=== PATIENT | female | born 1995 | race Caucasian/White ===

== ENCOUNTER → 2024-05-12 08:51 | Outpatient (CLI) | payer OTHER, SELFPAY ==
[2024-05-12 14:35] LABS: Urine Chlamydia NOT DETECTED; Urine N gonorrhoeae NOT DETECTED
== END ==
PROVIDERS: Visit Provider Obstetrics & Gynecology
DX: Z34.01 Encounter for supervision of normal first pregnancy, first trimester (principal); Z3A.12 12 weeks gestation of pregnancy
CPT/HCPCS: 87491; 87591

== ENCOUNTER → 2024-05-12 09:04 | Outpatient (CLI) | payer OTHER, SELFPAY ==
[2024-05-12 09:33] LABS: Add Manual Diff / Slide Review NO; Basophils Absolute Auto 100 /uL (0-100); Basophils Percent Auto 0.5 % (0-2); Eosinophils Absolute Auto 200 /uL (0-450); Eosinophils Percent Auto 1.8 % (2-4); Hematocrit 39.4 % (36-46); Hemoglobin 13.3 g/dL (12.0-16.0); Lymphocytes Absolute Auto 2000 /uL (1100-4500); Lymphocytes Percent Auto 15.7 % (25-40); Mean Corpuscular HGB Conc 33.7 % (30-36); Mean Corpuscular Hemoglobin 29.9 PG (26-34); Mean Corpuscular Volume 88.8 fL (80-100); Monocytes Absolute Auto 700 /uL (0-900); Monocytes Percent Auto 5.5 % (3-14); Neutrophils Absolute Auto 9600 /uL (1500-7000); Neutrophils Percent Auto 76.5 % (50-75); Platelet Count 315 X10^3/uL (150-400); Red Blood Cell Count 4.43 X10^6/uL (4.0-5.2); White Blood Cell Count 12.5 X10^3/uL (4.5-11.0)
[2024-05-12 10:16] LABS: Hepatitis B Surface Antigen NEGATIVE s/c (NEGATIVE); Rubella Antibody IgG 4.5 IU/mL (>15)
[2024-05-12 10:32] LABS: HIV 1 & 2 Ab/Ag 4th Gen Combo NEGATIVE (NEGATIVE); Hep C Virus Ab w/Reflex Quant NEGATIVE s/c (NEGATIVE)
[2024-05-12 12:12] LABS: Hemoglobin A1C% w Est Avg Glu 5.1 % (4.0-6.0)
[2024-05-13 06:14] LABS: RPR Screen Non Reactive (Non Reactive)
[2024-05-13 08:11] LABS: Varicella IgG Antibody Reactive (Non Reactive)
== END ==
PROVIDERS: Referring Provider Obstetrics & Gynecology; Visit Provider Obstetrics & Gynecology
DX: O99.210 Obesity complicating pregnancy, unspecified trimester (principal)
CPT/HCPCS: 36415; 80055; 83036; 86787; 86803; 86850; 86900; 86901; 87389; 87491; 87591

== ENCOUNTER → 2024-05-18 13:27 | Outpatient (CLI) | payer OTHER, SELFPAY ==
--- NOTE | 2024-05-18 13:36 | EKG_ITS ---
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
== END ==
PROVIDERS: Referring Provider Obstetrics & Gynecology; Visit Provider Obstetrics & Gynecology
DX: O16.1 Unspecified maternal hypertension, first trimester (principal)
CPT/HCPCS: 93005

== ENCOUNTER → 2024-05-25 08:43 | Outpatient (CLI) | payer OTHER, SELFPAY ==
[2024-05-25 10:46] LABS: Collection Time Urine 24 Hours; Protein (Total) Urine Random 15 mg/dL (0-12); Total Protein 24 Hour Urine 443 mg/day (42-225); Total Volume Urine 2950 mL
== END ==
PROVIDERS: Referring Provider Obstetrics & Gynecology; Visit Provider Obstetrics & Gynecology
DX: O16.1 Unspecified maternal hypertension, first trimester (principal)
CPT/HCPCS: 84156

== ENCOUNTER → 2024-06-09 10:23 | Outpatient (CLI) | payer OTHER, SELFPAY | PROVIDERS: Visit Provider Student in an Organized Health Care Education/Training Program | DX: Z34.02 Encounter for supervision of normal first pregnancy, second trimester (principal); Z3A.16 16 weeks gestation of pregnancy | CPT/HCPCS: 87086 ==

== ENCOUNTER → 2024-07-13 12:32 | Outpatient (CLI) | payer OTHER, SELFPAY ==
--- NOTE | 2024-07-13 12:34 | DI.US.S_ITS ---
PROCEDURE: US OB >= 14 WEEKS FETUS INDICATIONS: 20 week anatomy OUTSIDE/PRIOR DATING DATA: Last menstrual period (LMP): 02/18/2024. LMP-based estimated date of delivery (MAHSA): 11/24/2024. Working MAHSA First dating scan (date and location): 05/12/2024. Estimated date of delivery (MAHSA) from first dating scan: 11/22/2024. TECHNIQUE: Real-time scanning was performed of the fetus, with image documentation and biometric measurements. COMPARISON: Not available for review FINDINGS: General: A single living intrauterine gestation is present. Presentation: Variable. Placenta: Placental position is posterior , without previa. Amniotic fluid index 14.1 cm, normal range is 5-24 cm. Single deepest vertical pocket is 4 cm heart rate: 155 beats per minute. Maternal cervical canal: 4.7 cm long. biometrics: Biparietal diameter: 4.8 cm, 20 weeks and 4 days Head circumference: 17.6 cm, 20 weeks and 1 day Abdominal circumference: 16.3 cm, 21 weeks and 2 days Femur length: 3.3 cm, 20 weeks and 1 day Clinically estimated gestational age: 20 weeks and 6 days Composite gestational age from present scan: 20 weeks and 4 days Estimated weight and percentile: 373 g, 38% Anatomic survey: Neuro: Ventricles are non-dilated at less than 10 mm. Cisterna magna is normal at 3-11 mm. Cerebellum is normal in size and morphology. Nuchal skin fold: Normal at less than 6 mm between 14-21 weeks gestational age. Face: Nose and lips, facial profile are normal. Spine: No evidence for spina bifida. Heart: 4-chambered heart is present, with normal ventricular outflow tracts. Diaphragm: Diaphragm is intact. Stomach: Left-sided stomach is present. Kidneys: No hydronephrosis. Normal is less than 5 mm in 2nd trimester, less than 7 mm in 3rd trimester. Cord: 3-vessel cord has orthotopic insertion. Bladder: Normal in size. Extremities: All 4 extremities identified. IMPRESSION: Living intrauterine gestation at 20 weeks and 6 days. EFW at the 38th percentile, within normal limits. Normal STEPHANIE. No significant abnormalities on routine anatomic survey. Dictated by: Aramis Morris M.D. on 07/14/2024 at 14:09 Approved by: Aramis Morris M.D. on 07/14/2024 at 14:32
== END ==
LOC: US 12:33
PROVIDERS: Referring Provider Obstetrics & Gynecology; Visit Provider Obstetrics & Gynecology
DX: Z34.02 Encounter for supervision of normal first pregnancy, second trimester (principal); Z3A.20 20 weeks gestation of pregnancy
CPT/HCPCS: 76811

== ENCOUNTER 2024-08-07 14:41 | Observation (INO) | payer OTHER, SELFPAY ==
[2024-08-07 15:35] LABS: Add Manual Diff / Slide Review NO; Basophils Absolute Auto 100 /uL (0-100); Basophils Percent Auto 0.4 % (0-2); Eosinophils Absolute Auto 200 /uL (0-450); Eosinophils Percent Auto 1.6 % (2-4); Hematocrit 37.1 % (36-46); Hemoglobin 12.5 g/dL (12.0-16.0); Lymphocytes Absolute Auto 2300 /uL (1100-4500); Lymphocytes Percent Auto 16.4 % (25-40); Mean Corpuscular HGB Conc 33.7 % (30-36); Mean Corpuscular Hemoglobin 29.4 PG (26-34); Mean Corpuscular Volume 87.3 fL (80-100); Monocytes Absolute Auto 1100 /uL (0-900); Monocytes Percent Auto 7.7 % (3-14); Neutrophils Absolute Auto 10400 /uL (1500-7000); Neutrophils Percent Auto 73.9 % (50-75); Platelet Count 296 X10^3/uL (150-400); Red Blood Cell Count 4.25 X10^6/uL (4.0-5.2); Red Cell Distribution Width 13.2 % (11.6-14.8)
[2024-08-07 15:47] LABS: Uric Acid 3.5 mg/dL (2.5-6.2)
[2024-08-07 15:48] LABS: Alanine Aminotransferase 22 IU/L (<35); Albumin 3.7 g/dL (3.5-5.0); Albumin Globulin Ratio 1.4 (1.0-2.8); Alkaline Phosphatase 61 U/L (38-126); Aspartate Aminotransferase 25 IU/L (14-36); BUN Creatinine Ratio 11.4 (6-22); Bilirubin Total 0.2 mg/dL (0.2-1.3); Blood Urea Nitrogen 5 mg/dL (7-17); Calcium 8.9 mg/dL (8.4-10.2); Carbon Dioxide 22 mmol/L (22-32); Chloride 108 mmol/L (98-107); Estimated Glomerular Filt Rate > 60 mL/min (>60); Globulin 2.7 g/dL (1.7-4.1); Glucose 85 mg/dL (70-100); HEMOLYSIS < 15 (0-50); Potassium 3.4 mmol/L (3.4-5.1); Sodium 137 mmol/L (137-145); Total Protein 6.4 g/dL (6.3-8.2)
[2024-08-07 15:58] LABS: Creatinine Urine Random 111.64 mg/dL; Protein (Total) Urine Random 10 mg/dL (0-12); Protein Creatinine Ratio Urine 0.08 GRAM/24H
== END 2024-08-07 16:45 | disposition home or self-care (01) ==
LOC: LABOR 14:42
PROVIDERS: Admitting Provider Obstetrics & Gynecology; Referring Provider Obstetrics & Gynecology; Visit Provider Obstetrics & Gynecology
DX: O10.912 Unspecified pre-existing hypertension complicating pregnancy, second trimester (principal); Z3A.24 24 weeks gestation of pregnancy
CPT/HCPCS: 59025; 80053; 82570; 84156; 84550; 85025; G0378; G0379

== ENCOUNTER 2024-08-11 11:06 | Outpatient (CLI) | payer OTHER, SELFPAY ==
[2024-08-11 11:26] LABS: Add Manual Diff / Slide Review NO; Basophils Absolute Auto 100 /uL (0-100); Basophils Percent Auto 0.8 % (0-2); Eosinophils Absolute Auto 200 /uL (0-450); Eosinophils Percent Auto 1.5 % (2-4); Hematocrit 42.7 % (36-46); Hemoglobin 14.5 g/dL (12.0-16.0); Lymphocytes Absolute Auto 2300 /uL (1100-4500); Lymphocytes Percent Auto 14.7 % (25-40); Mean Corpuscular HGB Conc 34.1 % (30-36); Mean Corpuscular Hemoglobin 29.9 PG (26-34); Mean Corpuscular Volume 87.8 fL (80-100); Monocytes Absolute Auto 1100 /uL (0-900); Monocytes Percent Auto 6.8 % (3-14); Neutrophils Absolute Auto 11800 /uL (1500-7000); Neutrophils Percent Auto 76.2 % (50-75); Platelet Count 357 X10^3/uL (150-400); Red Blood Cell Count 4.87 X10^6/uL (4.0-5.2); Red Cell Distribution Width 13.1 % (11.6-14.8); White Blood Cell Count 15.5 X10^3/uL (4.5-11.0)
[2024-08-11 11:39] LABS: Alanine Aminotransferase 25 IU/L (<35); Albumin 4.2 g/dL (3.5-5.0); Albumin Globulin Ratio 1.3 (1.0-2.8); Alkaline Phosphatase 75 U/L (38-126); Aspartate Aminotransferase 26 IU/L (14-36); Bilirubin Total 0.3 mg/dL (0.2-1.3); Blood Urea Nitrogen 6 mg/dL (7-17); Calcium 9.2 mg/dL (8.4-10.2); Carbon Dioxide 18 mmol/L (22-32); Chloride 107 mmol/L (98-107); Estimated Glomerular Filt Rate > 60 mL/min (>60); Globulin 3.3 g/dL (1.7-4.1); Glucose 112 mg/dL (70-100); HEMOLYSIS < 15 (0-50); Potassium 3.6 mmol/L (3.4-5.1); Sodium 135 mmol/L (137-145); Total Protein 7.5 g/dL (6.3-8.2); Uric Acid 4.4 mg/dL (2.5-6.2)
[2024-08-11 12:07] LABS: Creatinine Urine Random 90.25 mg/dL; Protein (Total) Urine Random 16 mg/dL (0-12); Protein Creatinine Ratio Urine 0.17 GRAM/24H
--- NOTE | 2024-08-11 12:54 | P.TNLD_ITS ---
Visit Information Visit Information Date of evaluation: 08/11/24 Primary OB Provider: Carmen Dowell Reason for Evaluation: Yes non-stress test and Yes other Comments/Additional reasons for admission: 28yo G1 at 25w0d, known CHTN on nifedipine 30mg XR BID, seen in office for routine PNC with worsening bilateral peripheral edema, sustained severe range BP without LUNA. Sent to L&D triage for serial blood pressure monitoring, titration of antihypertensive regimen, interval PIH labs PFSH Medical History (Updated 06/09/24 @ 16:24 by Kim Castellano DO) Ovarian cyst (07/07/11) High blood pressure (05/17/12) Surgical History (Updated 05/05/24 @ 11:08 by Jocelyn Franco, EDSON) [place] teeth removed Status post tonsillectomy and adenoidectomy History of ankle surgery Family History (Updated 05/05/24 @ 11:12 by Jocelyn Franco RN) Father Hypertension Grandmother Alzheimer's dementia Hypertension Grandfather Lung cancer Smoker Grandmother Multiple sclerosis Hypertension COPD (chronic obstructive pulmonary disease) Smoker Stroke Grandfather Hypertension Parkinson's disease Brother Epilepsy Social History marital status: number of children: 0 household members: spouse lives independently: Yes caregiver/support person: Yes housing: house pets and animals: Yes (dogs) education level: college (bachelor's x2) 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[employer]) current occupational exposures/hazards: Yes special lexi needs: No travel history: recent (domestic, [place]; going to [place] in July) seatbelt use: always helmet use: Yes water heater temp set < 120 deg: Yes working smoke detector in home: Yes fire extinguisher in home: Yes carbon monox detector in home: Yes firearms in home: Yes firearms unloaded and locked: Yes do you feel safe at home: Yes Smoking Status: Never smoker second hand exposure: No alcohol intake: former (less than weekly when not ) substance use type: does not use during the past year weight has: increased > 10 lbs (~30 lb weight gain w/ OCPs) well-balanced diet: daily or most days daily servings fruits/ve-4 caffeine: Yes (aware of 200mg limit) Type(s) of exercise: walking, swimming and yoga Review of Systems Review of Systems ROS: Yes All systems reviewed with the patient and are negative except as otherwise documented Exam Vital Signs (past 8 hours): 160s/90s --> decreased to 130s/70s following PO nifedipine 30mg Const General: cooperative, comfortable and well developed Nutritional Appearance: obese Orientation: alert, awake and oriented x3 Limitations: mental status not altered Chest Chest: normal inspection of the chest Resp Effort & Inspection: normal respiratory effort and able to speak in complete sentences Cardio Pulses: normal peripheral pulses GI Inspection: normal to inspection and obesity Palpation: soft Other: no RUQ tenderness Other: deferred Skin General: no rashes or lesions noted Neuro General: patient alert, patient awake and patient oriented x3 DTR's: Rt Brachioradialis: 2+ and Lt Brachioradialis: 2+ Extrem Other: 3+ pitting edema to level of mid-calf Psych Mental Status: mental status grossly normal Judgment: judgment good Objective Labs 08/11/24 11:15 08/11/24 11:15 Labs: Laboratory Results - last 24 hr 08/11/24 11:15 WBC 15.5 H RBC 4.87 Hgb 14.5 Hct 42.7 MCV 87.8 MCH 29.9 MCHC 34.1 RDW 13.1 Plt Count 357 Neut % (Auto) 76.2 H Lymph % (Auto) 14.7 L [place] % (Auto) 6.8 Eos % (Auto) 1.5 L Baso % (Auto) 0.8 Neut # (Auto) 52336 H Lymph # (Auto) 2300 [place] # (Auto) 1100 H Eos # (Auto) 200 Baso # (Auto) 100 Sodium 135 L Potassium 3.6 Chloride 107 Carbon Dioxide 18 L BUN 6 L Creatinine 0.46 L Estimated GFR > 60 BUN/Creatinine Ratio 13.0 Glucose 112 H Uric Acid 4.4 Calcium 9.2 Total Bilirubin 0.3 AST 26 ALT 25 Alkaline Phosphatase 75 Total Protein 7.5 Albumin 4.2 Globulin 3.3 Albumin/Globulin Ratio 1.3 U Random Total Protein 16 H Urine Creatinine 90.25 Protein/Creatinin Ratio 0.17 Evaluation Evaluation Baseline heart rate: 145 Diagnosis, Plan/Disposition Final Diagnosis (1) Chronic hypertension in : Status: Acute Plan/Disposition Plan: increase PO nifedipine from 30mg XR BID to 60mg XR BID stat referral to [facility] for co-mgmt vs full transfer of care interval PIH labs without acute exacerbation, noted increase in baseline Pr/Cr to 0.17 strict PIH/PTL precautions reviewed OB Disposition: home
== END 2024-08-11 13:00 | disposition home or self-care (01) ==
LOC: LABOR 11:33 → OB 13:35
PROVIDERS: Referring Provider Obstetrics & Gynecology; Visit Provider Obstetrics & Gynecology
DX: O10.912 Unspecified pre-existing hypertension complicating pregnancy, second trimester (principal); Z3A.25 25 weeks gestation of pregnancy
CPT/HCPCS: 36415; 80053; 84550; 85025; G0378; G0379

== ENCOUNTER → 2024-08-25 08:21 | Outpatient (CLI) | payer OTHER, SELFPAY ==
[2024-08-25 10:02] LABS: Hematocrit 37.9 % (36-46); Hemoglobin 12.9 g/dL (12.0-16.0)
[2024-08-25 10:58] LABS: GTT (PREG) 1 Hour PP 50gm Dose 113 mg/dL (76-139)
== END ==
PROVIDERS: Referring Provider Obstetrics & Gynecology; Visit Provider Obstetrics & Gynecology
DX: Z34.02 Encounter for supervision of normal first pregnancy, second trimester (principal); Z3A.26 26 weeks gestation of pregnancy
CPT/HCPCS: 36415; 82950; 85014; 85018

== ENCOUNTER 2024-08-26 16:02 | Observation (INO) | payer OTHER, SELFPAY ==
[2024-08-26 17:03] LABS: Add Manual Diff / Slide Review NO; Basophils Absolute Auto 100 /uL (0-100); Basophils Percent Auto 0.6 % (0-2); Eosinophils Absolute Auto 500 /uL (0-450); Eosinophils Percent Auto 3.2 % (2-4); Hematocrit 37.4 % (36-46); Hemoglobin 12.7 g/dL (12.0-16.0); Lymphocytes Absolute Auto 2500 /uL (1100-4500); Lymphocytes Percent Auto 17.6 % (25-40); Mean Corpuscular HGB Conc 33.9 % (30-36); Mean Corpuscular Hemoglobin 29.9 PG (26-34); Mean Corpuscular Volume 88.2 fL (80-100); Monocytes Absolute Auto 1300 /uL (0-900); Monocytes Percent Auto 8.9 % (3-14); Neutrophils Absolute Auto 10000 /uL (1500-7000); Neutrophils Percent Auto 69.7 % (50-75); Platelet Count 272 X10^3/uL (150-400); Red Blood Cell Count 4.24 X10^6/uL (4.0-5.2); Red Cell Distribution Width 13.7 % (11.6-14.8); White Blood Cell Count 14.3 X10^3/uL (4.5-11.0)
[2024-08-26 17:15] LABS: Alanine Aminotransferase 32 IU/L (<35); Albumin 3.7 g/dL (3.5-5.0); Albumin Globulin Ratio 1.4 (1.0-2.8); Alkaline Phosphatase 61 U/L (38-126); Aspartate Aminotransferase 31 IU/L (14-36); BUN Creatinine Ratio 9.3 (6-22); Bilirubin Total 0.2 mg/dL (0.2-1.3); Blood Urea Nitrogen 5 mg/dL (7-17); Calcium 9.9 mg/dL (8.4-10.2); Carbon Dioxide 20 mmol/L (22-32); Chloride 108 mmol/L (98-107); Estimated Glomerular Filt Rate > 60 mL/min (>60); Globulin 2.7 g/dL (1.7-4.1); Glucose 111 mg/dL (70-100); HEMOLYSIS < 15 (0-50); Potassium 3.5 mmol/L (3.4-5.1); Sodium 137 mmol/L (137-145); Total Protein 6.4 g/dL (6.3-8.2); Uric Acid 6.2 mg/dL (2.5-6.2)
--- NOTE | 2024-08-26 17:16 | PM.OBTRLD ---
Visit Information Visit Information Date of evaluation: 08/26/24 Primary OB Provider: Carmen Dowell On-call OB Provider: Carmen Dowell Reason for Evaluation: Yes other Comments/Additional reasons for admission: 28yo G1 at 27w1d D=12wk US presents to L&D for further evaluation of BP exacerbation. Patient has known CHTN, currently co-managed with [facility] ([facility]). Last seen in office 08/25/24 and normotensive at that time with new antihypertensive regimen (30mg nifedipine XR BID, labetalol 300mg TID). Patient was at work this AM and began experiencing LUNA, checked BP and noted elevation 170s/100s. She took her afternoon dose of PO labetalol and re-checked her BP that was still elevated. She contacted [facility] and was directed to present to our facility for further evaluation and monitoring. On entering room pt is resting comfortably, NAD, mild facial plethora noted however c/w prior exam. She states LUNA is diffuse mild and has not tried temporizing measures. IV antihypertensive treatment started per [facility] protocol and [facility] contacted for consultation vs transfer Vital Signs Vital Signs: 178/96 184/98 20mg IV labetalol 178/90 20mg IV labetalol 188/89 183/109 40mg IV labetalol 4g IV magnesium PFSH Medical History (Updated 08/26/24 @ 18:38 by Carmen Dowell MD) Pre-eclampsia superimposed on chronic hypertension, antepartum Ovarian cyst (07/07/11) High blood pressure (05/17/12) Surgical History (Updated 05/05/24 @ 11:08 by Jocelyn Franco, EDSON) [place] teeth removed Status post tonsillectomy and adenoidectomy History of ankle surgery Family History (Updated 05/05/24 @ 11:12 by Jocelyn Franco RN) Father Hypertension Grandmother Alzheimer's dementia Hypertension Grandfather Lung cancer Smoker Grandmother Multiple sclerosis Hypertension COPD (chronic obstructive pulmonary disease) Smoker Stroke Grandfather Hypertension Parkinson's disease Brother Epilepsy Social History marital status: number of children: 0 household members: spouse lives independently: Yes caregiver/support person: Yes housing: house pets and animals: Yes (dogs) education level: college (bachelor's x2) 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: Yes special lexi needs: No travel history: recent (domestic, [place]; going to [place] in July) seatbelt use: always helmet use: Yes water heater temp set < 120 deg: Yes working smoke detector in home: Yes fire extinguisher in home: Yes carbon monox detector in home: Yes firearms in home: Yes firearms unloaded and locked: Yes do you feel safe at home: Yes Smoking Status: Never smoker second hand exposure: No alcohol intake: former (less than weekly when not ) substance use type: does not use during the past year weight has: increased > 10 lbs (~30 lb weight gain w/ OCPs) well-balanced diet: daily or most days daily servings fruits/ve-4 caffeine: Yes (aware of 200mg limit) Type(s) of exercise: walking, swimming and yoga Review of Systems Review of Systems ROS: Yes All systems reviewed with the patient and are negative except as otherwise documented Exam Const General: cooperative, comfortable and well developed Nutritional Appearance: obese and edematous Orientation: alert, awake and oriented x3 Limitations: mental status not altered Resp Effort & Inspection: normal respiratory effort and able to speak in complete sentences Auscultation: clear to auscultation bilaterally Cardio Pulses: normal peripheral pulses GI Palpation: soft Other: gravid Other: deferred Skin General: no rashes or lesions noted Neuro General: patient alert, patient awake and patient oriented x3 DTR's: Rt Brachioradialis: 4+ and Lt Brachioradialis: 4+ Extrem General: edema Other: pitting edema to level of mid thigh bilaterally bilateral hands edematous +3-4 DTR bilaterally Psych Mental Status: mental status grossly normal Judgment: judgment good Objective Labs 08/26/24 16:45 08/26/24 16:45 Labs: Laboratory Results - last 24 hr 08/26/24 16:45 WBC 14.3 H RBC 4.24 Hgb 12.7 Hct 37.4 MCV 88.2 MCH 29.9 MCHC 33.9 RDW 13.7 Plt Count 272 Neut % (Auto) 69.7 Lymph % (Auto) 17.6 L [place] % (Auto) 8.9 Eos % (Auto) 3.2 Baso % (Auto) 0.6 Neut # (Auto) 79271 H Lymph # (Auto) 2500 [place] # (Auto) 1300 H Eos # (Auto) 500 H Baso # (Auto) 100 Sodium 137 Potassium 3.5 Chloride 108 H Carbon Dioxide 20 L BUN 5 L Creatinine 0.54 Estimated GFR > 60 BUN/Creatinine Ratio 9.3 Glucose 111 H Uric Acid 6.2 Calcium 9.9 Total Bilirubin 0.2 AST 31 ALT 32 Alkaline Phosphatase 61 Total Protein 6.4 Albumin 3.7 Globulin 2.7 Albumin/Globulin Ratio 1.4 Evaluation Evaluation Baseline heart rate: 140 Variability: Average (6-10) Comments: reactive tracing for gestational age Diagnosis, Plan/Disposition Final Diagnosis (1) Pre-eclampsia superimposed on chronic hypertension, antepartum: Status: Acute Plan/Disposition Plan: 28yo G1 at 27w1d D=12wk US with known CHTN on dual-agent antihypertensive therapy presents for further evaluation, acute BP exacerbation Superimposed preE with severe features Persistent severe range BP, s/p IV labetalol 20/20/40, magnesium 4g bolus in process [facility] contacted (Dr. Mariah Ramos), accepted for transfer at 1800 to [facility] contacted, ETA 1845 BMZ x1 administered, 4g mag bolus +2g/hr thereafter gtt in process OB Disposition: tertiary care transfer
[2024-08-26 17:24] LABS: Creatinine Urine Random 56.25 mg/dL; Protein (Total) Urine Random 25 mg/dL (0-12); Protein Creatinine Ratio Urine 0.44 GRAM/24H
[2024-08-26 17:37] VITALS: BP 182/79
[2024-08-26] MEDS: LABETALOL 20 MG/4 ML SYRINGE IV ×2 (17:37→17:53)
[2024-08-26 17:53] VITALS: BP 178/86; PULSE 62
[2024-08-26] MEDS: MAGNESIUM SULFATE 4 GM/100 ML PIGGYBACK IV (18:23)
[2024-08-26] MEDS: BETAMETHASONE 30 MG/5 ML MDV 12 MG IM (18:28)
[2024-08-26 18:37] VITALS: BP 183/106; PULSE 65
[2024-08-26] MEDS: LABETALOL 20 MG/4 ML SYRINGE 40 MG IV (18:37)
== END 2024-08-26 19:06 | disposition home or self-care (01) ==
PROVIDERS: Admitting Provider Obstetrics & Gynecology; Referring Provider Obstetrics & Gynecology; Visit Provider Obstetrics & Gynecology
DX: O11.2 Pre-existing hypertension with pre-eclampsia, second trimester (principal); O10.912 Unspecified pre-existing hypertension complicating pregnancy, second trimester; Z3A.27 27 weeks gestation of pregnancy
CPT/HCPCS: 59025; 59050; 80053; 84550; 85025; 96360; 96372; G0378; G0379; J0702; J3475